=== PATIENT | male | born 1950 | race Caucasian/White ===

== ENCOUNTER → 2020-05-27 14:11 | Outpatient (BNVA) | payer MEDICARE, OTHER, SELFPAY | PROVIDERS: Visit Provider Nurse Practitioner Family | DX: Z01.812 Encounter for preprocedural laboratory examination (principal) | CPT/HCPCS: 87635 ==

== ENCOUNTER 2020-05-30 13:20 | Outpatient (CLI) | payer MEDICARE, OTHER, SELFPAY ==
--- NOTE | 2020-05-30 13:47 | PFTS_ITS ---
Date of Study:05/30/20 Date of Dictation: 06/01/2020 MECHANICS: Forced vital capacity (FVC) is reduced. Forced expiratory volume in one second (FEV1) is reduced 48%. FEV1/FVC is reduced. No significant response to bronchodilators noted. FLOW VOLUME LOOP: Sloping of end expiratory limb of the loop suggestive of small airway obstruction . LUNG VOLUMES: Total lung capacity (TLC) is reduced 69%. Residual volume (RV) is normal. RV/TLC 150% suggestive of mild hyperinflation. DIFFUSING CAPACITY FOR CARBON MONOXIDE: Mildly reduced 68% . INTERPRETATION: Overall pulmonary function tests are consistent with severe obstructive ventilatory defect. Although reduced total lung capacity suggestive of coexisting mild restrictive lung disease. Gas transfer is mildly reduced. No significant response to bronchodilators noted. Please correlate clinically MTDD
== END 2020-05-30 13:21 | disposition home or self-care (01) ==
LOC: RT 13:26
PROVIDERS: PCP Nurse Practitioner Family; Visit Provider Nurse Practitioner Family
DX: R06.02 Shortness of breath (principal)
CPT/HCPCS: 94060; 94726; 94729; J7611

== ENCOUNTER → 2023-04-08 11:16 | Outpatient (BNVA) | payer MEDICARE, OTHER, SELFPAY | PROVIDERS: PCP Nurse Practitioner Family; Referring Provider Nurse Practitioner Family; Visit Provider Nurse Practitioner Family | DX: R06.02 Shortness of breath (principal); R60.9 Edema, unspecified; R05.9 Cough, unspecified; I51.7 Cardiomegaly | CPT/HCPCS: 71046 ==